=== PATIENT | female | born 1950 | race Caucasian/White ===

== ENCOUNTER 2017-09-20 07:46 | Observation (INO) | payer MEDICARE, OTHER ==
[2017-09-19 09:42] LABS: BASOPHILS % 0.6 % (0.0-1.0); EOSINOPHILS # (AUTO) 0.1 (0.0-0.4); EOSINOPHILS % 1.6 % (0.0-6.0); HEMATOCRIT 41.6 % (34.2-44.1); HEMOGLOBIN 14.6 g/dL (12.0-16.0); LYMPHOCYTES # (AUTO) 1.8 (1.0-3.2); LYMPHOCYTES % 28.1 % (18.0-39.1); MEAN CORPUSCULAR HEMOGLOBIN 30.5 pg (28-32); MEAN CORPUSCULAR HGB CONC 35.1 g/dL (31-35); MONOCYTES # (AUTO) 0.6 (0.2-0.8); MONOCYTES % 8.8 % (4.4-11.3); NEUTROPHILS # (AUTO) 3.8 (2.1-6.9); NEUTROPHILS % 60.7 % (38.7-80.0); PLATELET COUNT 210 x10e3/uL (140-360); RED BLOOD COUNT 4.78 x10e6/uL (3.6-5.1); RED CELL DISTRIBUTION WIDTH 12.6 % (11.7-14.4)
[2017-09-19 09:56] LABS: INR 1.01; PROTHROMBIN TIME 12.5 seconds (11.9-14.5)
[2017-09-19 09:57] LABS: PARTIAL THROMBOPLASTIN TIME 26.5 seconds (23.8-35.5)
[2017-09-19 10:01] LABS: ANION GAP 16.8 mmol/L (8-16); BLOOD UREA NITROGEN 17 mg/dL (7-26); BUN/CREATININE RATIO 22 (6-25); CALCIUM 10.3 mg/dL (8.4-10.2); CARBON DIOXIDE 29 mmol/L (22-29); CHLORIDE 107 mmol/L (98-107); CREATININE, SERUM 0.79 mg/dL (0.57-1.11); EST GLOMERULAR FILTRATION RATE > 60 ML/MIN (60-); GLUCOSE 138 mg/dL (74-118); POTASSIUM 4.8 mmol/L (3.5-5.1); SODIUM 148 mmol/L (136-145)
--- NOTE | 2017-09-19 10:29 | Diagnostic Imaging Report ---
PROCEDURE: Frontal and lateral views of the chest. COMPARISON: None. INDICATIONS: BACK PAIN, L SPINE SURGERY FINDINGS: Lines/tubes: None. Lungs: The lungs are well inflated and clear. There is no evidence of pneumonia or pulmonary edema. Pleura: There is no pleural effusion or pneumothorax. Heart and mediastinum: The heart and the mediastinum are normal. Atherosclerotic calcifications. Bones: No acute bony abnormality. Degenerative changes of the thoracic spine. IMPRESSION: No acute radiographic abnormality. Dictated by: Toi Casper M.D. on 09/19/2017 at 10:30 Electronically approved by: Toi Casper M.D. on 09/19/2017 at 10:30
[~2017-09-20] VITALS: Ht 157.5 cm; Wt 74.8 kg
[~2017-09-20 07:46] MED LIST: ACETAMINOPHEN 1000 MG/100 ML 100 ML IV ONE; ASPIR 8181 MG PO; ATORVASTATIN CA10 MG PO; CALTRATE-600 W1 EACH PO; CENTRUM SILVER1 EAC3 PO; GABAPENTIN100 MG PO; HYDROCHLOROTHIA25 MG PO; LEXAPRO10 MG PO; LIDOCAINE HCL (LTA) 4 ML SOLN ONE; LISINOPRIL10 MG PO; METHSCOPOLAMINE5 MG PO; NATURE MADE D3 PO; OMEGA 3 1,0001 EACH PO; OSTEO BI-FLEX1 EAC2 PO; PLAQUENIL200 MG PO; TIZANIDINE HCL4 MG PO
--- OUTSIDE RECORDS SUMMARY | 2017-09-20 07:47 | XMS REPORT ---
[facility] Address Unknown Phone Unavailable Care Team Providers Care Manufacturing Sales Representative Name Role Phone PROSPER CÁRDENAS Unavailable Unavailable Problems This patient has no known problems. Allergies, Adverse Reactions, Alerts This patient has no known allergies or adverse reactions. Medications This patient has no known medications. Results Test Description Test Time Test Comments Text Results Atomic Results Result Comments CHEST 2 VIEWS [place] [address] Patient Name: TERESE CLAUDIO MR #: [id number] : 1950 Age/Sex: 67/F Req #: [id number] Adm Physician: Ordered by: PROSPER CÁRDENAS MD Report #: [id number] Location: OR Room/Bed: Procedure: [id number] DX/CHEST 2 VIEWS Exam Date: 09/19/17 Exam Time: 1000 REPORT STATUS: Signed PROCEDURE: Frontal and lateral views of the chest. COMPARISON: None. INDICATIONS: BACK PAIN, L SPINE SURGERY FINDINGS: Lines/tubes: None. Lungs: The lungs are well inflated and clear. There is no evidence of pneumonia or pulmonary edema. Pleura: There is no pleural effusion or pneumothorax. Heart and mediastinum: The heart and the mediastinum are normal. Atherosclerotic calcifications. Bones: No acute bony abnormality. Degenerative changes of the thoracic spine. IMPRESSION: No acute radiographic abnormality. Dictated by: Francine Casper M.D. on 09/19/2017 at 10:30 Electronically approved by: Francine Casper M.D. on 09/19/2017 at 10:30 Dictated By: FRANCINE CASPER MD 1030 COPY TO: PROSPER CÁRDENAS MD
[2017-09-20] MEDS ORDERED: CEFAZOLIN SOD 1 GM VIAL ONE (08:11)
[2017-09-20] MEDS: LACTATED RINGER'S 1,000 ML IV SCH (10:53)
[2017-09-20] MEDS ORDERED: FENTANYL CITRATE/PF 100MCG/2 ML INJ ONE (10:59)
[2017-09-20] MEDS ORDERED: OXYCODONE/ACETAMINOPHEN 5-325 1 EACH TABLET PO PRN (11:00)
[2017-09-20] MEDS ORDERED: MAGNESIUM/ALUMINUM/SIMETHICONE 30 ML UDC PO PRN (11:00)
[2017-09-20] MEDS ORDERED: CARISOPRODOL 350 MG TAB PO PRN (11:00)
[2017-09-20] MEDS ORDERED: HYDROMORPHONE 2MG/ML INJ IV PRN (11:00)
[2017-09-20] MEDS ORDERED: ACETAMINOPHEN 325 MG TAB PO PRN (11:00)
[2017-09-20] MEDS ORDERED: MORPHINE SULFATE 5 MG/ML VIAL IM PRN (11:00)
[2017-09-20] MEDS ORDERED: PROMETHAZINE HCL (IM) 25 MG/ML VIAL IM PRN (11:00)
[2017-09-20] MEDS ORDERED: ONDANSETRON HCL INJ 2 MG/ML VIAL IV PRN (11:00)
[2017-09-20 12:15] VITALS: BP 102/59
--- NOTE | 2017-09-20 13:54 | Operative Report ---
DATE OF PROCEDURE: September 20, 2017 PREOPERATIVE DIAGNOSIS: Left L5-S1 disk herniation with radiculopathy, M51.17. POSTOPERATIVE DIAGNOSIS: Left L5-S1 disk herniation with radiculopathy, M51.17. PROCEDURE: Left L5-S1 laminotomy, medial facetectomy and microsurgical diskectomy, 55111. ANESTHESIA: General. INDICATIONS: Patient is a 67-year-old woman who presents with a focal left L5-S1 disk herniation with intractable left S1 radiculopathy. She was taken to the operating room for microsurgical diskectomy. PROCEDURE: After the induction of general anesthesia, the patient was placed on the operating table in prone position over a Idris frame. Lumbar region was prepped and draped in sterile fashion. A preoperative x-ray was obtained. A small midline incision was created. Lumbar fascia was opened to the left of the midline, and a subperiosteal dissection was carried out to expose the left side of L5 and S1 laminae and the medial aspect of the L5-S1 facet joint. A 2nd x-ray confirmed correct localization. The operating microscope was brought in. A high-speed drill equipped with a alexander bur was used to drill the inferior aspect of lamina of L5, the superior rim of the lamina of S1 and the medial rim of the L5-S1 facet joint. The ligamentum flavum was resected. The dural sac and the S1 nerve root were exposed. A ball probe was passed under the S1 nerve root and used to retrieve the focally extruded disk fragment. The edge of the disk fragment was then grasped with a micropituitary rongeur. A sizable fragment of disk was delivered out and removed. This obtained immediate relaxation of the S1 nerve root. The S1 nerve root was then retracted medially, and the annulus of the disk was inspected. A very small opening was present in the annulus and, therefore, the annulus was not further opened and the contents of the disk were not disturbed. The wound was irrigated with Bacitracin solution. Meticulous hemostasis was secured. Retractor was removed. The lumbar fascia was closed with #0 Vicryl sutures. Subcutaneous layer was closed with 2-0 Vicryl sutures. The skin was closed with 3-0 Monocryl sutures in subcuticular fashion. Steri-Strips and dressing were applied. The patient was awakened, extubated and taken to the postanesthesia care unit in stable condition. No intraoperative complications were encountered. Estimated blood loss was 10 mL. Job#: [id number]
[2017-09-20] MEDS ORDERED: CEFAZOLIN SOD 1 GM/NS 50ML 50 ML IV SCH (14:00)
[2017-09-20] MEDS: GABAPENTIN 100 MG CAP PO SCH ×2 (15:00→20:38)
[2017-09-20 16:00] VITALS: BP 121/75
[2017-09-20] MEDS ORDERED: ONDANSETRON HCL INJ 2 MG/ML VIAL IV ONE (16:54)
[2017-09-20] MEDS ORDERED: EPHEDRINE SULFATE INJ 50 MG/10 ML SYR IV ONE (16:54)
[2017-09-20] MEDS ORDERED: GLYCOPYRROLATE INJ 1MG/ 5 ML SYR IV ONE (16:54)
[2017-09-20] MEDS ORDERED: DEXAMETHASONE SOD PHOS INJ 4 MG/ML VIAL IV ONE (16:54)
[2017-09-20] MEDS ORDERED: PROPOFOL IV EMULSION 10 MG/ML 20 ML VIAL IV ONE (16:54)
[2017-09-20] MEDS ORDERED: NEOSTIGMINE 5 MG/5ML SYR IV ONE (16:54)
[2017-09-20] MEDS ORDERED: SEVOFLURANE INHAL SOLN 250 ML PEN BTL INH ONE (16:54)
[2017-09-20] MEDS ORDERED: LIDOCAINE HCL 2% LOCAL INJ 5 ML SDV VIAL INJ ONE (16:54)
[2017-09-20] MEDS ORDERED: ROCURONIUM BROMIDE 10 MG/ML 5ML VIAL IV ONE (16:54)
[2017-09-20] MEDS ORDERED: LIDOCAINE HCL 2% JELLY 5 ML TUBE TOP ONE (16:54)
[2017-09-20] MEDS: CEFAZOLIN SOD 1 GM VIAL IV SCH (18:06)
[2017-09-20 20:00] VITALS: BP 121/66
[2017-09-20] MEDS ORDERED: SODIUM CHLORIDE 0.9% 50ML 50 ML ONE (20:35)
[2017-09-20] MEDS ORDERED: ATORVASTATIN 10 MG TAB PO SCH (21:00)
[2017-09-20] MEDS ORDERED: ZOLPIDEM TARTRATE 5 MG TAB PO PRN (21:00)
[2017-09-21] VITALS: BP 108/82
[2017-09-21] MEDS: CEFAZOLIN SOD 1 GM VIAL IV SCH ×2 (00:50→09:00)
[2017-09-21] MEDS: LACTATED RINGER'S 1,000 ML IV SCH (03:10)
[2017-09-21 04:00] VITALS: BP 103/61
[2017-09-21 07:33] VITALS: BP 120/62
[2017-09-21 08:00] VITALS: BP 120/62
[2017-09-21] MEDS ORDERED: HYDROCHLOROTHIAZIDE 25 MG TAB PO SCH (09:00)
[2017-09-21] MEDS ORDERED: MULTIVITAMINS/MINERALS TAB PO SCH (09:00)
[2017-09-21] MEDS ORDERED: LISINOPRIL 10 MG TAB PO SCH (09:00)
[2017-09-21] MEDS: GABAPENTIN 100 MG CAP PO SCH (09:00)
[2017-09-21] MEDS ORDERED: HYDROXYCHLOROQUINE SULFATE 200 MG TAB PO SCH (09:00)
[2017-09-21] MEDS ORDERED: TIZANIDINE HCL 4 MG TAB PO SCH (09:00)
[2017-09-21] MEDS ORDERED: (Glucosamine/D3/Boswellia Serra (Osteo Bi-Flex Caplet) 1 TAB) PO SCH (09:00)
[2017-09-21] MEDS ORDERED: LISINOPRIL 20 MG TAB PO SCH (09:00)
[2017-09-21] MEDS ORDERED: ESCITALOPRAM OXALATE 10 MG TAB PO SCH (09:00)
[2017-09-21] MEDS ORDERED: [UNRECOGNIZED DRUG - OTHER] PO SCH (09:00)
[2017-09-21] MEDS ORDERED: NATURE MADE D3 PO SCH (09:00)
[2017-09-21] MEDS ORDERED: NON-FORMULARY MEDICATION (Mu-Vits-Min Th/Lycopene/Lutein (Centrum Silver Tablet) 1 TAB) PO SCH (09:00)
[2017-09-21] MEDS ORDERED: VITAMIN D3 PO SCH (09:00)
[2017-09-21] MEDS ORDERED: METHSCOPOLAMINE BROMIDE PO SCH (09:00)
[2017-09-21] MEDS ORDERED: VIT D PO SCH (09:00)
[2017-09-21] MEDS ORDERED: OYST-CAL-D 500MG TABLET PO SCH (09:00)
[2017-09-21] MEDS ORDERED: CALCIUM CARBONATE PO SCH (09:00)
[2017-09-21] MEDS ORDERED: NORCO 7.5-3251 EACH PO (09:40)
== END 2017-09-21 10:29 | disposition home or self-care (01) ==
LOC: OR 07:46 → MED/SURG2 11:12
PROVIDERS: ADMIT Neurological Surgery; ATTEND Neurological Surgery
DX: M51.17 Intervertebral disc disorders with radiculopathy, lumbosacral region (principal); I10 Essential (primary) hypertension; E78.5 Hyperlipidemia, unspecified; M06.9 Rheumatoid arthritis, unspecified; F41.9 Anxiety disorder, unspecified; K58.9 Irritable bowel syndrome, unspecified; E78.00 Pure hypercholesterolemia, unspecified
CPT/HCPCS: 36415; 63047; 71046; 72020; 80048; 85025; 85610; 85730; 86850; 86900; 88304; 93005; G0378 ×2; J0690 ×2; J1100; J2001 ×2; J2270; J2405; J2550; J7120 ×2